=== PATIENT | male | born 1980 | race Caucasian/White ===

== ENCOUNTER 2024-06-30 08:28 | Emergency (ER) | payer BC ==
--- NOTE | 2024-06-30 08:41 | EDPHYS ---
Physician Documentation [facility] Name: Nick Neal Age: 44 yrs Sex: Male : 1980 Arrival Date: 06/30/2024 Time: 08:28 Bed 17 Private MD: REGINE Physician Joshua Bella HPI: 06/30 08:41 This 44 yrs old Male presents to ER via EMS with complaints of Colostomy bag ec2 problem. 08:41 Patient arrives today asking for a new colostomy bag. No other concerns.. ec2 Historical: - Allergies: 08:34 No Known Allergies; ph - PMHx: 08:34 None; ph - PSHx: 08:34 Colostomy; ph - Immunization history:: Adult Immunizations unknown. - Infectious Disease History:: Denies. - Social history:: Smoking status: unknown. ROS: 08:41 Constitutional: as per hpi ec2 Exam: 08:41 Constitutional: GEN: NAD Head: atraumatic Eyes: EOMI Ears: External ears are ec2 normal. CV: regular rate LUNGS: no respiratory distress ABD: non-distended, well-appearing pink stoma in the right abdomen SKIN: no evidence of rashes MSK: no evidence of trauma Vital Signs: 08:32 BP 132 / 78; Pulse 89; Resp 18; Temp 97.9; Pulse Ox 98% on R/A; ph MDM: 08:39 Patient medically screened. ec2 08:41 Data reviewed: vital signs. ED course: Patient arrives today for new colostomy bag. ec2 Examination remarkable for well-appearing stoma site. Nursing applied colostomy bag. Will discharge home. Return precautions given . Administered Medications: No medications were administered Disposition Summary: 06/30/24 08:40 Discharge Ordered Notes: Location: Home ec2 Condition: Stable ec2 Diagnosis - Encounter for attention to colostomy ec2 Followup: ec2 - With: Private Physician - When: - Reason: Re-evaluation by your physician Discharge Instructions: - Discharge Summary Sheet ec2 - Colostomy Home Guide, Adult ec2 Forms: - Medication Reconciliation Form ec2 - Antibiotic Education ec2 - Prescription Opioid Use ec2 - Patient Portal Instructions ec2 - Leadership Thank You Letter ec2 Signatures: Alise Wallace RN RN ph Joshua Bella MD MD ec2
--- NOTE | 2024-06-30 08:41 | ER ---
Nurse's Notes [facility] Name: Nick Neal Age: 44 yrs Sex: Male : 1980 Arrival Date: 06/30/2024 Time: 08:28 Bed 17 Private MD: Diagnosis: Encounter for attention to colostomy Presentation: 06/30 08:32 Chief complaint: EMS states: [facility], bag coming ph loose and needs supplies to change it. VSS. Coronavirus screen: Vaccine status: Patient reports being unvaccinated. Ebola Screen: No symptoms or risks identified at this time. Initial Sepsis Screen: Does the patient meet any 2 criteria? No. Patient's initial sepsis screen is negative. Does the patient have a suspected source of infection? No. Patient's initial sepsis screen is negative. Risk Assessment: Do you want to hurt yourself or someone else? Patient reports no desire to harm self or others. Onset of symptoms was June 30, 2024. 08:32 Method Of Arrival: EMS: [facility] ph 08:32 Acuity: LUCINDA 4 ph Triage Assessment: 08:34 General: Appears in no apparent distress. comfortable, Behavior is calm, cooperative. ph Pain: Denies pain. Neuro: Level of Consciousness is awake, alert, obeys commands, Oriented to person, place, time, situation. Cardiovascular: Capillary refill < 3 seconds in bilateral fingers Patient's skin is warm and dry. Respiratory: Airway is patent Respiratory effort is even, unlabored. GI: Colostomy site is clean and dry. Ostomy appliance noted to be loose, pt provided w/ supplies to change appliance. Derm: Skin is pink, warm \T\ dry. Musculoskeletal: Circulation, motion, and sensation intact. Range of motion: intact in all extremities. Historical: - Allergies: 08:34 No Known Allergies; ph - PMHx: 08:34 None; ph - PSHx: 08:34 Colostomy; ph - Immunization history:: Adult Immunizations unknown. - Infectious Disease History:: Denies. - Social history:: Smoking status: unknown. Screenin:35 [facility] ED Fall Risk Assessment (Adult) History of falling in the last 3 months, ph including since admission No falls in past 3 months (0 pts) Confusion or Disorientation No (0 pts) Intoxicated or Sedated No (0 pts) Impaired Gait No (0 pts) Mobility Assist Device Used No (0 pt) Altered Elimination Yes (1 pt) Score/Fall Risk Level 0 - 2 = Low Risk Oriented to surroundings, Maintained a safe environment, Hourly rounding (assess needs \T\ fall precautionary measures) done. Abuse screen: Denies threats or abuse. Denies injuries from another. Nutritional screening: No deficits noted. Tuberculosis screening: No symptoms or risk factors identified. Vital Signs: 08:32 BP 132 / 78; Pulse 89; Resp 18; Temp 97.9; Pulse Ox 98% on R/A; ph ED Course: 08:31 Patient arrived in ED. ph 08:34 Triage completed. ph 08:34 Arm band placed on Patient placed in an exam room, on a stretcher, on pulse oximetry. ph 08:35 Joshua Bella MD is Attending Physician. ec2 08:36 Patient has correct armband on for positive identification. Bed in low position. Call ph light in reach. Side rails up X 1. Pulse ox on. NIBP on. 08:36 No provider procedures requiring assistance completed. Patient did not have IV access ph during this emergency room visit. 08:48 Alise Wallace, RN is Primary Nurse. ph Administered Medications: No medications were administered Medication: 08:36 VIS not applicable for this client. ph Outcome: 08:40 Discharge ordered by . ec2 08:49 Discharged to Law Enforcement ph 08:49 Condition: good 08:49 Discharge instructions given to patient, police, Instructed on discharge instructions, follow up and referral plans. Demonstrated understanding of instructions, follow-up care, 08:49 Patient left the ED. ph Signatures: Alise Wallace RN RN ph Joshua Bella MD MD ec2
[2024-06-30 13:44] VITALS: BP 132/78; TEMP 97.9; O2SAT 98
== END 2024-06-30 08:49 | disposition home or self-care (01) ==
LOC: ER 08:28
DX: Z43.3 Encounter for attention to colostomy (principal)
CPT/HCPCS: 99283